=== PATIENT | female | born 1990 | race Caucasian/White ===

== ENCOUNTER 2016-11-21 09:32 | Emergency (ER) | payer MEDICAID ==
[~2016-11-21] VITALS: Ht 160 cm; Wt 90.9 kg
[~2016-11-21 09:32] MED LIST: ASPI1TAB2 PO; BUPR75TA5 PO; CALC-141 PO; CYCL5TAB PO; DOCU-30 PO; IBUP200T48 PO; IBUP800T PO; MAGN400O4 PO; NITR100C56 PO; OXYC1TAB7 PO; PNV1TABL47 PO; SERT25TA PO; SERT50TA PO; TYLENOL PM; VENL75CA PO
[2016-11-21] MEDS ORDERED: LORA-445 PO (10:02)
[2016-11-21] MEDS ORDERED: BALS750C14 PO (10:04)
[2016-11-21 10:24] LABS: HCG UR OBC PASS
[2016-11-21 10:25] LABS: PATH.CAST-FLAG NOT PRESENT; SPERM-FLAG NOT PRESENT; SRC-FLAG NOT PRESENT; XTAL-FLAG NOT PRESENT; YLC-FLAG NOT PRESENT
[2016-11-21 10:50] LABS: ASPARTATE AMINO TRANSFERASE 7 U/L (15-37); BLOOD UREA NITROGEN 7 mg/dL (7-18)
[2016-11-21 11:07] LABS: IS PT STATUS REG ER OR PRE ER? YES
[2016-11-21 11:48] VITALS: BP 119/83
== END 2016-11-21 11:51 | disposition home or self-care (01) ==
LOC: ED 10:13
DX: R10.11 Right upper quadrant pain (principal); G89.29 Other chronic pain; H60.11 Cellulitis of right external ear; F31.9 Bipolar disorder, unspecified; F90.9 Attention-deficit hyperactivity disorder, unspecified type; Z98.890 Other specified postprocedural states
CPT/HCPCS: 36415; 70450; 80053; 81001; 81025; 83605; 84484; 85025; 85651; 93005

== ENCOUNTER 2016-12-21 16:01 | Emergency (ER) | payer MEDICAID ==
[~2016-12-21] VITALS: Ht 160 cm; Wt 90.3 kg
[~2016-12-21 16:01] MED LIST changes: +BALS750C14 PO; +LORA-445 PO
[2016-12-21] MEDS ORDERED: DIPHENHYDRAMINE 50 MG/ML, 1ML IVPush ONE (16:30)
[2016-12-21] MEDS ORDERED: FAMOTIDINE 20 MG/2 ML IVP ONE (16:30)
[2016-12-21] MEDS ORDERED: SODIUM CHLORIDE 0.9% 1,000ML IVBOLUS ONE (16:30)
[2016-12-21] MEDS ORDERED: SODIUM CHLORIDE FLUSH 10ML SYR IVF ONE (16:30)
[2016-12-21] MEDS ORDERED: METOCLOPRAMIDE 5 MG/ML, 2ML IVPush ONE (16:30)
[2016-12-21] MEDS ORDERED: MAALOX/HYOSCYAMINE/LIDOCAINE 45 ML BOTTLE PO ONE (16:30)
[2016-12-21] MEDS ORDERED: MAALOX/HYOSCYAMINE/LIDOCAINE 45 ML BOTTLE ONE (16:39)
[2016-12-21] MEDS ORDERED: DIPHENHYDRAMINE 50 MG/ML, 1ML ONE (16:39)
[2016-12-21] MEDS ORDERED: METOCLOPRAMIDE 5 MG/ML, 2ML ONE (16:39)
[2016-12-21] MEDS ORDERED: FAMOTIDINE 20 MG/2 ML ONE (16:39)
[2016-12-21] MEDS ORDERED: MORPHINE SULFATE 4 MG/ML, 1ML ONE ×3 (16:39→18:52)
[2016-12-21] MEDS: MORPHINE SULFATE 4 MG/ML, 1ML IVPush PRN ×2 (16:45→17:41)
[2016-12-21 17:12] LABS: ASPARTATE AMINO TRANSFERASE 11 U/L (15-37); BLOOD UREA NITROGEN 12 mg/dL (7-18)
[2016-12-21] MEDS ORDERED: OMNIPAQUE 350 MG/ML, 100ML BOTTLE ONE (17:37)
[2016-12-21] MEDS ORDERED: morphine SULFATE 10 MG/ML, 1ML IVPush ONE (18:30)
[2016-12-21 19:29] VITALS: BP 127/89
== END 2016-12-21 19:33 | disposition home or self-care (01) ==
LOC: ED 17:41
DX: K51.90 Ulcerative colitis, unspecified, without complications (principal); R10.84 Generalized abdominal pain
CPT/HCPCS: 36415; 74177; 80053; 81003; 83690; 84703; 85025; 96361; 96374; 96375; 96376; 99285; J1200; J2270; J2765; J7030; Q9967; 93005; S0028

== ENCOUNTER 2017-01-21 13:21 | Emergency (ER) | payer MEDICAID ==
[~2017-01-21] VITALS: Ht 160 cm; Wt 92.3 kg
[2017-01-21] MEDS ORDERED: SODIUM CHLORIDE 0.9% 1,000ML IVBOLUS ONE ×2 (14:30→16:00)
[2017-01-21] MEDS ORDERED: ONDANSETRON 2MG/ML, 2ML IVPush ONE (14:30)
[2017-01-21] MEDS ORDERED: SODIUM CHLORIDE FLUSH 10ML SYR IVF ONE (14:30)
[2017-01-21 14:57] LABS: ASPARTATE AMINO TRANSFERASE 10 U/L (15-37); BLOOD UREA NITROGEN 12 mg/dL (7-18)
[2017-01-21] MEDS ORDERED: ONDANSETRON 2MG/ML, 2ML ONE (15:16)
[2017-01-21] MEDS ORDERED: MORPHINE SULFATE 4 MG/ML, 1ML ONE ×2 (15:16→16:01)
[2017-01-21] MEDS: MORPHINE SULFATE 4 MG/ML, 1ML IVPush PRN ×2 (15:23→16:07)
[2017-01-21 15:59] VITALS: BP 112/72
[2017-01-21] MEDS ORDERED: LORazepam 2 MG/ML, 1ML ONE (16:09)
[2017-01-21] MEDS ORDERED: LORazepam 2 MG/ML, 1ML IVPush ONE (16:30)
[2017-01-21] MEDS ORDERED: OMNIPAQUE 350 MG/ML, 100ML BOTTLE ONE (16:41)
[2017-01-21] MEDS ORDERED: HYDROmorphone 1 MG/ML, 1ML ONE ×2 (16:59→17:51)
[2017-01-21] MEDS ORDERED: methylPREDNISolone SOD SUCC 125 MG/2 ML ONE (16:59)
[2017-01-21] MEDS ORDERED: methylPREDNISolone SOD SUCC 125 MG/2 ML IVPush ONE (17:00)
[2017-01-21] MEDS: HYDROmorphone 1 MG/ML, 1ML IVPush PRN ×2 (17:07→17:55)
== END 2017-01-21 18:11 | disposition home or self-care (01) ==
LOC: ED 14:33
DX: K51.30 Ulcerative (chronic) rectosigmoiditis without complications (principal); L04.8 Acute lymphadenitis of other sites
CPT/HCPCS: 36415; 74177; 80053; 81001; 83605; 84703; 85025; 87086; 96361; 96374; 96375; 96376; 99285; J1170; J2060; J2405; J2930; J7030; Q9967

== ENCOUNTER 2017-02-14 15:02 | Emergency (ER) | payer MEDICAID ==
[~2017-02-14] VITALS: Ht 160 cm; Wt 89.4 kg
[2017-02-14] MEDS ORDERED: SODIUM CHLORIDE 0.9% 1,000 ML IV ONE (16:23)
[2017-02-14] MEDS ORDERED: SODIUM CHLORIDE 0.9% 1,000ML IVBOLUS ONE (16:30)
[2017-02-14] MEDS ORDERED: SODIUM CHLORIDE FLUSH 10ML SYR IVF ONE (16:30)
[2017-02-14] MEDS ORDERED: ONDANSETRON 2MG/ML, 2ML IVPush ONE (16:30)
[2017-02-14] MEDS ORDERED: HYDROmorphone 1 MG/ML, 1ML IVPush PRN (16:30)
[2017-02-14] MEDS ORDERED: HYDROmorphone 1 MG/ML, 1ML ONE (16:36)
[2017-02-14] MEDS ORDERED: ONDANSETRON 2MG/ML, 2ML ONE (16:36)
[2017-02-14 16:50] LABS: ASPARTATE AMINO TRANSFERASE 17 U/L (15-37); BLOOD UREA NITROGEN 11 mg/dL (7-18)
[2017-02-14] MEDS ORDERED: OMNIPAQUE 350 MG/ML, 100ML BOTTLE ONE (18:18)
[2017-02-14 20:23] VITALS: BP 128/94
== END 2017-02-14 20:25 | disposition home or self-care (01) ==
LOC: ED 16:54
DX: R10.84 Generalized abdominal pain (principal); Z88.8 Allergy status to other drugs, medicaments and biological substances
CPT/HCPCS: 36415; 74177; 76700; 80053; 81001; 83605; 83690; 84703; 85025; 87086; 93005; 96361; 96374; 96375; 99285; J1170; J2405; J7030; Q9967

== ENCOUNTER 2017-02-14 20:36 | Emergency (ER) | payer MEDICAID ==
[~2017-02-14] VITALS: Ht 160 cm; Wt 90.2 kg
[2017-02-14] MEDS ORDERED: DICYCLOMINE 10 MG/ML, 2ML IM ONE (22:00)
[2017-02-14] MEDS ORDERED: OXYcodone/APAP 5/325MG TABLET PO ONE (22:00)
[2017-02-14] MEDS ORDERED: methylPREDNISolone SOD SUCC 40 MG/ML IM ONE (22:00)
[2017-02-14] MEDS ORDERED: OXYcodone/APAP 5/325MG TABLET ONE (22:07)
[2017-02-14] MEDS ORDERED: methylPREDNISolone SOD SUCC 125 MG/2 ML ONE (22:07)
[2017-02-14 23:09] VITALS: BP 111/78
== END 2017-02-14 23:12 | disposition home or self-care (01) ==
LOC: ED 21:15
DX: R10.84 Generalized abdominal pain (principal); F90.9 Attention-deficit hyperactivity disorder, unspecified type; Z72.9 Problem related to lifestyle, unspecified
CPT/HCPCS: 96372; 99284; J0500; J2920

== ENCOUNTER 2017-03-20 17:04 | Emergency (ER) | payer MEDICAID ==
[~2017-03-20] VITALS: Ht 162.6 cm; Wt 92.7 kg
[~2017-03-20 17:04] MED LIST changes: +DOCU-131 PO; -DOCU-30 PO; +IBUP-1223 PO; -IBUP800T PO; -MAGN400O4 PO; +MAGN400O7 PO
[2017-03-20] MEDS ORDERED: PRED20TA PO (17:51)
[2017-03-20] MEDS ORDERED: OXYC5CAP2 PO (17:51)
[2017-03-20] MEDS ORDERED: [UNRECOGNIZED DRUG - OTHER] (17:51)
[2017-03-20] MEDS ORDERED: BALS750C14 PO (17:51)
[2017-03-20] MEDS ORDERED: VENL75CA PO (17:51)
[2017-03-20] MEDS ORDERED: ONDANSETRON 2MG/ML, 2ML ONE (18:15)
[2017-03-20] MEDS ORDERED: MORPHINE SULFATE 4 MG/ML, 1ML ONE ×2 (18:15→19:35)
[2017-03-20] MEDS: MORPHINE SULFATE 4 MG/ML, 1ML IVPush PRN ×2 (18:20→19:39)
[2017-03-20] MEDS ORDERED: SODIUM CHLORIDE FLUSH 10ML SYR IVF ONE (18:30)
[2017-03-20] MEDS ORDERED: ONDANSETRON 2MG/ML, 2ML IVPush ONE (18:30)
[2017-03-20] MEDS ORDERED: SODIUM CHLORIDE 0.9% 1,000ML IVBOLUS ONE (18:30)
[2017-03-20 18:35] LABS: HEMATOCRIT 38.4 % (34.6-47.8); HEMOGLOBIN 12.5 g/dL (11.7-16.4); WHITE BLOOD COUNT 20.7 x10^3/uL (3.4-10)
[2017-03-20 18:47] LABS: ASPARTATE AMINO TRANSFERASE 11 U/L (15-37); BLOOD UREA NITROGEN 20 mg/dL (7-18)
[2017-03-20 20:19] LABS: HCG UR OBC PASS
[2017-03-20 21:48] VITALS: BP 123/88
[2017-03-21] MEDS ORDERED: OMNIPAQUE 350 MG/ML, 100ML BOTTLE ONE (05:38)
== END 2017-03-20 21:50 | disposition home or self-care (01) ==
LOC: ED 18:06
DX: R10.84 Generalized abdominal pain (principal); F90.9 Attention-deficit hyperactivity disorder, unspecified type
CPT/HCPCS: 36415; 74020; 74177; 80053; 81003; 81025; 83690; 85025; 96361; 96374; 96375; 96376; 99285; J2405; J7030; Q9967

== ENCOUNTER 2017-05-17 15:08 | Emergency (ER) | payer MEDICAID ==
[~2017-05-17] VITALS: Ht 160 cm; Wt 91.4 kg
[~2017-05-17 15:08] MED LIST changes: +ASPI-691 PO; -ASPI1TAB2 PO; +OXYC5CAP2 PO; +PRED20TA PO; +[UNRECOGNIZED DRUG - OTHER]
[2017-05-17] MEDS ORDERED: SODIUM CHLORIDE 0.9% 1,000ML IVBOLUS ONE (15:30)
[2017-05-17] MEDS ORDERED: SODIUM CHLORIDE FLUSH 10ML SYR IVF ONE (15:30)
[2017-05-17 15:51] LABS: HEMATOCRIT 42.7 % (34.6-47.8); HEMOGLOBIN 13.9 g/dL (11.7-16.4); WHITE BLOOD COUNT 12.5 x10^3/uL (3.4-10)
[2017-05-17 16:03] LABS: BLOOD UREA NITROGEN 9 mg/dL (7-18)
[2017-05-17 16:09] LABS: ASPARTATE AMINO TRANSFERASE 7 U/L (15-37)
[2017-05-17 18:03] VITALS: BP 104/74
== END 2017-05-17 18:16 | disposition home or self-care (01) ==
LOC: ED 18:06
DX: G89.29 Other chronic pain (principal); R10.84 Generalized abdominal pain; D72.829 Elevated white blood cell count, unspecified
CPT/HCPCS: 36415; 74020; 80053; 81001; 83690; 84703; 85025; 87086; 96360; 99285; J7030

== ENCOUNTER 2017-07-03 20:06 | Emergency (ER) | payer MEDICAID ==
[~2017-07-03] VITALS: Ht 160 cm; Wt 95.6 kg
[2017-07-03 21:27] LABS: HEMATOCRIT 40.3 % (34.6-47.8); HEMOGLOBIN 13.4 g/dL (11.7-16.4); WHITE BLOOD COUNT 12.7 x10^3/uL (3.4-10)
[2017-07-03 21:58] LABS: PATH.CAST-FLAG NOT PRESENT; SPERM-FLAG NOT PRESENT; SRC-FLAG NOT PRESENT; XTAL-FLAG NOT PRESENT; YLC-FLAG NOT PRESENT
[2017-07-03 22:09] LABS: ASPARTATE AMINO TRANSFERASE 14 U/L (15-37); BLOOD UREA NITROGEN 7 mg/dL (7-18)
[2017-07-03] MEDS ORDERED: ZIPRASIDONE 20 MG INJ IM ONE ×2 (22:54→23:00)
[2017-07-03 23:34] VITALS: BP 104/76
== END 2017-07-04 00:08 | disposition home or self-care (01) ==
LOC: ED 20:49
DX: R10.84 Generalized abdominal pain (principal); M25.561 Pain in right knee; R11.0 Nausea; M54.30 Sciatica, unspecified side; F12.10 Cannabis abuse, uncomplicated
CPT/HCPCS: 36415; 73564; 80053; 81001; 83690; 84703; 85025; 96372; 99285; J3486